=== PATIENT | female | born 1980 | race Caucasian/White ===

== ENCOUNTER 2018-07-26 22:15 | Emergency (ER) | payer OTHER ==
[~2018-07-26] VITALS: Ht 177.8 cm; Wt 90.0 kg
[2018-07-26 23:26] VITALS: BP 159/96
== END 2018-07-27 00:01 | disposition home or self-care (01) ==
LOC: ER 22:15
DX: R45.6 Violent behavior (principal); R45.1 Restlessness and agitation; F19.10 Other psychoactive substance abuse, uncomplicated; I10 Essential (primary) hypertension; Z91.19 Patient's noncompliance with other medical treatment and regimen
CPT/HCPCS: 99283